=== PATIENT | female | born 1945 | race Caucasian/White ===

== ENCOUNTER 2017-08-30 06:45 | Emergency (ER) | payer MEDICARE ==
[~2017-08-30] VITALS: Ht 167.6 cm; Wt 63.5 kg
[2017-08-30] MEDS ORDERED: ASPIRIN 81 MG CHEW TAB PO ONE (07:15)
[2017-08-30] MEDS ORDERED: ALPRAZOLAM 0.5 MG TAB PO ONE (07:15)
[2017-08-30] MEDS ORDERED: HYDRALAZINE HCL 20 MG/ML VIAL IV STA (07:16)
[2017-08-30] MEDS ORDERED: AMLODIPINE BESY10 MG PO (07:31)
[2017-08-30 07:34] LABS: BASOPHILS % 0.3 % (0.0-1.0); EOSINOPHILS # (AUTO) 0.1 (0.0-0.4); EOSINOPHILS % 0.6 % (0.0-6.0); HEMATOCRIT 40.7 % (34.2-44.1); HEMOGLOBIN 14.2 g/dL (12.0-16.0); LYMPHOCYTES # (AUTO) 2.3 (1.0-3.2); LYMPHOCYTES % 25.8 % (18.0-39.1); MEAN CORPUSCULAR HEMOGLOBIN 30.2 pg (28-32); MEAN CORPUSCULAR HGB CONC 34.9 g/dL (31-35); MEAN CORPUSCULAR VOLUME 86.6 fL (81-99); MONOCYTES # (AUTO) 0.6 (0.2-0.8); MONOCYTES % 7.1 % (4.4-11.3); PLATELET COUNT 295 x10e3/uL (140-360); RED CELL DISTRIBUTION WIDTH 12.8 % (11.7-14.4)
[2017-08-30 07:43] LABS: INR 0.95; PROTHROMBIN TIME 11.9 seconds (11.9-14.5)
[2017-08-30 07:48] LABS: PARTIAL THROMBOPLASTIN TIME 17.3 seconds (23.8-35.5)
[2017-08-30 07:58] LABS: ALANINE AMINOTRANSFERASE 16 IU/L (0-55); ALBUMIN 3.6 g/dL (3.5-5.0); ALBUMIN/GLOBULIN RATIO 0.9 (0.8-2.0); ALKALINE PHOSPHATASE 52 IU/L (40-150); BLOOD UREA NITROGEN 10 mg/dL (7-26); BUN/CREATININE RATIO 13 (6-25); CALCIUM 9.7 mg/dL (8.4-10.2); CARBON DIOXIDE 24 mmol/L (22-29); CHLORIDE 99 mmol/L (98-107); CREATINE KINASE 116 IU/L (29-168); CREATININE, SERUM 0.77 mg/dL (0.57-1.11); EST GLOMERULAR FILTRATION RATE > 60 ML/MIN (60-); GLUCOSE 94 mg/dL (74-118); SODIUM 134 mmol/L (136-145)
--- NOTE | 2017-08-30 07:59 | Diagnostic Imaging Report ---
PROCEDURE: CHEST SINGLE (PORTABLE) COMPARISON: None. INDICATIONS: TINGLING OF HANDS FINDINGS: LUNGS: No consolidations or edema.Dystrophic calcification projects over the left midlung. Incidental note of an azygous fissure. PLEURA: No effusions or pneumothorax. HEART \T\ MEDIASTINUM: Tortuosity and atherosclerotic calcification of the thoracic aorta. Normal heart size. No pulmonary edema. BONES \T\ SOFT TISSUES: No acute findings. CONCLUSION: No acute cardiopulmonary abnormality. Dictated by: Peyman Peralta M.D. on 08/30/2017 at 8:03 Electronically approved by: Peyman Peralta M.D. on 08/30/2017 at 8:03
--- NOTE | 2017-08-30 09:07 | Diagnostic Imaging Report ---
History:Numbness in fingers, pain in neck Comparison studies:None Technique: Axial images were obtained from the skull base to the vertex. Coronal and sagittal images reconstructed from the axial data. Intravenous contrast: None Findings: Scalp/skull: No abnormalities. Extra-axial spaces: No masses. No fluid collections. Brain sulci: Age-appropriate. Ventricles: Age-appropriate. No hydrocephalus. Parenchyma: No abnormal densities. No masses, hemorrhage, acute or chronic cortical vascular insults. Sellar/suprasellar region: No abnormalities. Craniocervical junction: Patent foramen magnum. No Chiari one malformation. Incidental findings: Mild atherosclerotic calcifications in the carotid siphons . Impression: No acute abnormalities. Expected appearance of the brain for patient's age. Signed by: DR Maxim Koo M.D. on 08/30/2017 9:04 AM
[2017-08-30] MEDS ORDERED: GABAPENTIN 300 MG CAP PO ONE (09:15)
[2017-08-30 10:21] VITALS: BP 136/80
== END 2017-08-30 09:47 | disposition home or self-care (01) ==
LOC: ER 06:45
DX: R07.9 Chest pain, unspecified (principal); R20.2 Paresthesia of skin; I10 Essential (primary) hypertension; F41.1 Generalized anxiety disorder
CPT/HCPCS: 36415; 70450; 71045; 80053; 82550; 82553; 83735; 83880; 84484; 85025; 85610; 85730; 93005; 99284; J0360